=== PATIENT | female | born 1990 | race Caucasian/White ===

== ENCOUNTER 2017-04-03 05:38 | Emergency (ER) | payer BC ==
[~2017-04-03] VITALS: Ht 162.6 cm; Wt 52.6 kg
[2017-04-03 05:43] VITALS: BP 104/54
--- NOTE | 2017-04-03 05:52 | NUR ---
PT TAKEN TO BED 4
--- NOTE | 2017-04-03 05:54 | NUR ---
Dr. Phan evaluating patient at bedside.
[2017-04-03] MEDS ORDERED: ONDANSETRON 4 MG/2 ML VIAL IVP ONE (06:00)
[2017-04-03] MEDS ORDERED: NACL 0.9% 2,000 ML IV ONE (06:00)
[2017-04-03] MEDS ORDERED: MORPHINE SULFATE 2 MG/ML SYR IVP ONE (06:00)
[2017-04-03 06:34] LABS: BASOPHILS # (AUTO) 0.1 K/uL (0.00-0.22); BASOPHILS % (AUTO) 1.1 % (0.0-2.0); EOSINOPHILS # (AUTO) 0.2 K/uL (0-0.4); EOSINOPHILS % (AUTO) 1.5 % (0.0-4.0); HEMATOCRIT 40.1 % (36-48); HEMOGLOBIN 13.7 g/dL (12.0-16.0); LYMPHOCYTES # (AUTO) 1.3 K/uL (2.5-16.5); LYMPHOCYTES % (AUTO) 11.5 % (20.5-51.1); MEAN CORPUSCULAR HEMOGLOBIN 32 pg (27-31); MEAN CORPUSCULAR HGB CONC 34 g/dL (33-37); MEAN CORPUSCULAR VOLUME 93 fL (80-94); MONOCYTES # (AUTO) 0.9 K/uL (0.8-1.0); MONOCYTES % (AUTO) 7.7 % (1.7-9.3); NEUTROPHILS # (AUTO) 8.6 K/uL (1.8-7.7); NEUTROPHILS % (AUTO) 78.2 % (42.2-75.2); PLATELET COUNT (AUTO) 240 K/uL (140-450); RED BLOOD CELL COUNT(AUTO) 4.32 MIL/uL (4.20-5.40); WHITE BLOOD COUNT (AUTO) 11.1 K/uL (4.8-10.8)
[2017-04-03 06:43] LABS: ANION GAP 12.1 (8-16); CALCIUM 8.5 mg/dL (8.5-10.1); CARBON DIOXIDE 27.4 mmol/L (21-32); CREATININE 0.8 mg/dL (0.6-1.3); POTASSIUM 3.5 mmol/L (3.5-5.1)
[2017-04-03 06:49] LABS: ALBUMIN 3.8 g/dL (3.4-5.0); TOTAL BILIRUBIN 0.4 mg/dL (0.0-1.0); TOTAL PROTEIN, SERUM 7.6 g/dL (6.4-8.2)
--- NOTE | 2017-04-03 07:01 | NUR ---
Pt report given to VIOLET WALLACE. Transfer of care at this time.
[2017-04-03 07:21] LABS: APPEARANCE,URINE CLEAR (CLEAR); BILIRUBIN,URINE NEGATIVE (NEGATIVE); BLOOD, URINE NEGATIVE (NEGATIVE); COLOR,URINE YELLOW (YELLOW); LEUKOCYTE ESTERASE ,URINE NEGATIVE (NEGATIVE); NITRITE, URINE NEGATIVE (NEGATIVE); PROTEIN,URINE NEGATIVE (NEGATIVE); UGLUCOSE NEGATIVE (NEGATIVE); UROBILINOGEN,URINE 0.2 EU/dL (0.2 - 1)
[2017-04-03 07:27] LABS: INR 1.1 (0.8-1.2); PARTIAL THROMBOPLASTIN TIME 27.6 secs (22-35.6); PROTHROMBIN TIME 10.5 secs (10.8-13.4)
[2017-04-03 07:33] LABS: AMPHETAMINE, URINE NEG. ng/ml (NEG <=1000); BARBITURATE, URINE NEG. ng/ml (NEG <=200); BENZODIAZEPINE, URINE NEG. ng/mL (NEG <=200); CANNABINOID, URINE NEG. ng/mL (NEG <=50); COCAINE, URINE NEG. ng/mL (NEG <=300); OPIATE, URINE NEG. ng/mL (NEG <=2000); PHENCYCLIDINE SCREEN,URINE NEG. ng/mL (NEG <=25)
--- NOTE | 2017-04-03 09:25 | NUR ---
IV removed TO LEFT AC 20G, catheter intact and site benign. Applied folded 4x4 gauze and tape to stop bleeding. PT TOLERATED PROCEDURE WELL.
[2017-04-03 09:27] VITALS: BP 104/64
--- NOTE | 2017-04-03 09:27 | NUR ---
Patient discharged with v/s stable. Written and verbal after care instructions given and explained. Patient alert, oriented and verbalized understanding of instructions. Ambulatory with steady gait. All questions addressed prior to discharge. ID band removed. Patient advised to follow up with PMD. Rx of ZOFRAN ODT 4MG, IMODIUM A-D 2MG CAP, NORCO 5MG-325MG TAB & CIPRO 500MG TAB given. Patient educated on indication of medication including possible reaction and side effects. Opportunity to ask questions provided and answered.
--- NOTE | 2017-04-03 10:14 | NUR ---
Note nic in EDM - 04/03/17 at 1018 by [facility] IV removed TO LEFT AC 20G, catheter intact and site benign. Applied folded 4x4 gauze and tape to stop bleeding. PT TOLERATED PROCEDURE WELL.
== END 2017-04-03 09:27 | disposition home or self-care (01) ==
LOC: MED 05:38
DX: K52.9 Noninfective gastroenteritis and colitis, unspecified (principal); R94.5 Abnormal results of liver function studies
CPT/HCPCS: 36415; 74177; 80053; 80305; 81002; 81003; 81025; 83690; 85025; 85610; 85730; 87086; 96361; 96374; 96375; 99285; G0482; J2270; J2405; J7030; Q9967